=== PATIENT | male | born 1995 | race Caucasian/White ===

== ENCOUNTER 2022-01-28 20:11 | Emergency (ER) | payer BC, MEDICAID, SELFPAY ==
--- NOTE | ~2022-01-28 | XR_ITS ---
EXAMINATION: XR ANKLE, LEFT CLINICAL INFORMATION: Left ankle pain COMPARISON: None TECHNIQUE: AP, lateral, and mortise views of the left ankle. FINDINGS: Osseous alignment is anatomic. No acute fracture is seen. Lateral soft tissue swelling is noted. XR/XR ankle LT min 3V IMPRESSION: Lateral soft tissue swelling without acute osseous findings.
[2022-01-28 20:54] VITALS: BP 123/70; PULSE 70; RESP 14; TEMP 36.9; O2SAT 98; BMI 24.3
== END 2022-01-29 01:25 | disposition left against medical advice (07) ==
LOC: HO.ED 01-29 01:23
PROVIDERS: Emergency Provider Emergency Medicine
DX: S99.912A Unspecified injury of left ankle, initial encounter (principal); X58.XXXA Exposure to other specified factors, initial encounter; Y93.9 Activity, unspecified; Y92.9 Unspecified place or not applicable; Y99.9 Unspecified external cause status
CPT/HCPCS: 73610; 99283